=== PATIENT | male | born 1960 | race Caucasian/White ===

== ENCOUNTER → 2021-10-04 | Outpatient (CLI) | payer BC | LOC: EXRD 09-18 07:43 | DX: N17.9 Acute kidney failure, unspecified (principal) | CPT/HCPCS: 76775 ==

== ENCOUNTER → 2021-11-08 | Outpatient (CLI) | payer BC | LOC: KOH-I 08:00 | DX: M51.36 Other intervertebral disc degeneration, lumbar region (principal) | CPT/HCPCS: 72131 ==

== ENCOUNTER → 2021-11-20 | Outpatient (CLI) | payer BC | LOC: NM 13:00 | DX: Z82.41 Family history of sudden cardiac death (principal) | CPT/HCPCS: 78452; 93017; A9502; J2785 ==